=== PATIENT | male | born 1960 | race African-American/Black ===

== ENCOUNTER 2020-04-19 04:53 | Day surgery (SDC) | payer OTHER ==
[2020-04-17 16:49] VITALS: BMI 28.8
--- NOTE | 2020-04-19 10:59 | HP ---
History & Physical Update - History History: No Change - Physical Physical: No Change - Assessment Assessment: No Change - Plan Plan: No Change
--- NOTE | 2020-04-19 11:01 | OP ---
Operative Note - Note: Operative Date: 04/19/20 Pre-Operative Diagnosis: L varicocele Operation: L varicocelectomy Findings: L varicocele Post-Operative Diagnosis: Same as Pre-op Surgeon: Chuck Kaufman Anesthesiologist/BLACK OFF WORKER: Shannan Delgado Anesthesia: General, Local Specimens Removed: portion of L internal spermatic vein Estimated Blood Loss (mls): 0
[2020-04-19] MEDS ORDERED: oxyCODONE HCL 5 MG TABLET PO PRN ×2 (12:55)
[2020-04-19] MEDS ORDERED: ONDANSETRON 4 MG/2 ML VIAL IVPUSH PRN (12:55)
[2020-04-19] MEDS ORDERED: LACTATED RINGERS SOLUTION 1,000 ML IV SCH (13:00)
[2020-04-19] MEDS ORDERED: DEXAMETHASONE SOD PHOSPHATE 4 MG/1 ML VIAL ONE (13:13)
[2020-04-19] MEDS ORDERED: ceFAZolin SODIUM 1 GM VIAL ONE (13:13)
[2020-04-19] MEDS ORDERED: MIDAZOLAM HCL 2 MG/2 ML SINGLE DOSE VIAL ONE (13:14)
[2020-04-19] MEDS ORDERED: PROPOFOL 20 ML ONE (13:14)
[2020-04-19] MEDS ORDERED: BUPIVACAINE HCL 100 ML ONE (14:00)
[2020-04-19] MEDS ORDERED: ceFAZolin 2 GRAM PREMIX BAG IVPB ONE (14:25)
[2020-04-19] MEDS ORDERED: KETOROLAC TROMETHAMINE 30 MG/1 ML VIAL ONE (14:32)
[2020-04-19 17:43] VITALS: BP 116/72; PULSE 51; TEMP 96.6
--- NOTE | 2020-04-21 14:56 | OP ---
DATE OF OPERATION: 04/19/2020 PREOPERATIVE DIAGNOSIS: Left varicocele. POSTOPERATIVE DIAGNOSIS: Left varicocele. PROCEDURE: Left varicocelectomy. SURGEON: Genaro Boucher MD SWEDGER: None. ANESTHESIA: General via laryngeal mask plus local. ANESTHESIOLOGIST: Shannan Delgado MD SPECIMENS: Portion of left internal spermatic vein. CULTURES: None. DRAINS: None. ESTIMATED BLOOD LOSS: Negligible. COMPLICATIONS: None. PROCEDURE: Patient brought in the operating room, placed on the operating table in the supine position. After the administration of general anesthesia via laryngeal mask, intravenous antibiotics were administered. Sequential compression devices were placed. Patient was placed in the supine position and the groin was shaved first, then prepped and draped in usual sterile manner. A left inguinal incision was made approximately 5 cm. This was carried down through the underlying layer. The Uziel's fascia was opened. The external oblique aponeurosis was identified and opened from the external ring in the direction of its fibers. The ilioinguinal nerve was identified and dissected out and protected throughout the duration of the procedure. The spermatic cord was then dissected out using blunt dissection. A 1-inch Yeimi was placed beneath it to elevate. The external spermatic fascia was opened. Then the internal spermatic vein was identified, dissected out, ligated with 3-0 silk ligatures and a segment was excised, sent to Pathology. Hemostasis was assured. The spermatic cord was replaced in the inguinal canal. Hemostasis assured. Local anesthesia of 10 mL was injected. The wound was closed in layers closing the subcutaneous tissue with interrupted 3-0 Vicryl. The skin was closed with huma. The wound was sterilely dressed with Telfa, 4 x 4 and Tegaderm. He tolerated the procedure well, was transferred to recovery in stable condition. GENARO BOUCHER M.D. [id number]
--- NOTE | 2020-04-23 17:01 | PATH ---
Surgical Pathology Report Patient Name: TERRENCE OLIVER [facility]. Rec. #: [id number] /Age/Gender: 1960 (Age: 60) / M Account: [id number] Location: [facility] Taken: 04/19/2020 Received: 04/22/2020 Reported: 04/23/2020 Physicians: Chuck Kaufman M.D. Specimen(s) Received PORTION OF LEFT INTERNAL SPERMATIC VEIN Clinical History Scrotal varices Final Diagnosis PORTION OF LEFT INFERIOR SPERMATIC VEIN, EXCISION: PORTION OF VEIN. NEGATIVE FOR MALIGNANCY. Electronically Signed Sherry Camara M.D. Gross Description Received in formalin labeled "portion of left inferior spermatic vein," is a 0.1 cm in length x 0.1 cm in diameter rhodes, tubular structure, consistent with a portion of vein. The specimen is submitted in toto in one cassette. /04/22/2020 saudi/04/22/2020
== END 2020-04-19 17:40 | disposition home or self-care (01) ==
LOC: JASU-SURG 04:53
PROVIDERS: ATTEND Urology
PROC: 0VBG0ZZ Excision of Left Spermatic Cord, Open Approach (ICD-10-PCS; principal; 2020-04-19 14:00)
DX: I86.1 Scrotal varices (principal)
CPT/HCPCS: 88304-TC; 94760